=== PATIENT | female | born 1960 | race Caucasian/White ===

== ENCOUNTER 2017-01-21 12:26 | Emergency (ER) | payer MEDICAID ==
[2015-10-02 13:17] VITALS: BMI 20.2
[~2017-01-21 12:26] MED LIST: ATIVAN0.5 MG PO; BAYER CHEWABLE81 MG PO; CARDIZEM120 MG PO; CIPRO500 MG PO; COLACE100 MG; COLACE100 MG PO; GLYCERIN A1 SUPP.REC RC; HYDROCHLOROTHIA25 MG GT; HYDROCODONE-APA1 TAB PO; IBUPROFEN800 MG PO; LIPITOR10 MG PO; LIPITOR20 MG PO; MACROBID100 MG PO; MIRALAX17 GM PO; NICODERM C1 PATCH .1 TRANSDERM; OXYCODONE HCL E20 MG PO; OXYCODONE HCL10 MG PO; OXYCONTIN PO; PERCOCET 10/3251 TA1 PO; PLAVIX75 MG PO; PRAVACHOL20 MG PO; WELLBUTRIN SR150 MG PO; ZESTRIL40 MG
[2017-01-21 13:55] LABS: BASOPHILS 0.1 % (0-2); EOSINOPHILS 0 % (0-7); HEMATOCRIT 35.3 % (36.0-48.0); HEMOGLOBIN 11.8 g/dL (12-16); IMMATURE GRANULOCYTES 0.2 % (0-5); LYMPHOCYTES 8.8 % (15-50); MCH 30.3 pg (26.0-34.0); MCHC 33.4 g/dL (31.0-37.0); MCV 90.7 fL (80.0-100.0); MEAN PLATELET VOLUME 9.9 fL (7.4-10.4); MONOCYTES 12.2 % (2-11); NEUTROPHILS 78.7 % (40-80); RBC 3.89 10x6/uL (4.00-5.40); WBC 8.2 10x3/uL (4.8-10.8)
[2017-01-21 13:57] LABS: PLATELET COUNT 106 10x3/uL (130-400)
[2017-01-21 14:11] LABS: APPEARANCE HAZY (CLEAR); BILIRUBIN NEGATIVE (NEGATIVE); COLOR DK YELLOW (YELLOW); GLUCOSE NEGATIVE (NEGATIVE); KETONE SMALL mg/dL (NEGATIVE); LEUKOCYTE ESTERASE TRACE (NEGATIVE); NITRITE NEGATIVE (NEGATIVE); PROTEIN NEGATIVE (NEGATIVE); SPECIFIC GRAVITY 1.015 (1.005-1.020); UROBILINOGEN NORMAL (NORMAL)
[2017-01-21 14:12] LABS: ALBUMIN 3.7 g/dL (3.4-5.0); BACTERIA FEW /hpf (NONE SEEN); BILIRUBIN - TOTAL 0.61 mg/dL (0.2-1.3); CALCIUM 8.7 mg/dL (8.5-10.1); CARBON DIOXIDE 27.7 mmol/L (21.0-32.0); CREATININE - SERUM 1.3 mg/dL (0.6-1.3); EPITHELIAL CELLS 0-5 /hpf (0-5); GRANULAR CAST 0-5 /lpf (NONE SEEN); HYALINE CAST 0-5 /lpf (NONE SEEN); MUCUS >1+ /lpf (NONE SEEN); POTASSIUM - SERUM 4.7 mmol/L (3.5-5.1); RED CELLS - URINE RARE /hpf (0-5); WHITE CELLS - URINE 0-5 /hpf (0-5)
== END 2017-01-21 16:24 | disposition home or self-care (01) ==
LOC: D.ER 12:26
PROVIDERS: Family Medicine
DX: S39.011A Strain of muscle, fascia and tendon of abdomen, initial encounter (principal); X58.XXXA Exposure to other specified factors, initial encounter; Y93.11 Activity, swimming; Y92.89 Other specified places as the place of occurrence of the external cause; F17.200 Nicotine dependence, unspecified, uncomplicated